=== PATIENT | male | born 1960 | race Hispanic/Latino ===

== ENCOUNTER 2017-12-25 09:43 | Outpatient (CLI) | payer OTHER ==
--- NOTE | 2017-12-25 11:26 | RAD ---
THREE VIEWS OF THE RIGHT SHOULDER: Date: 12-25-17 Comparison: None. History: Right shoulder pain and soreness, fall 6 weeks ago. FINDINGS: There is no widening of the acromioclavicular or coracoclavicular interspace. No displaced fracture o r evidence of dislocation seen. IMPRESSION: No acute osseous abnormality. POS: [facility]
== END 2017-12-25 09:44 | disposition home or self-care (01) ==
LOC: SCSRAD 09:43
PROVIDERS: ATTEND Family Medicine
DX: M25.511 Pain in right shoulder (principal)
CPT/HCPCS: 36415; 80053; 80061; 83036; 84439; 84443; 85025; 87521; G0103

== ENCOUNTER 2019-01-20 10:03 | Outpatient (CLI) | payer OTHER ==
--- NOTE | 2019-01-20 10:43 | RAD ---
Exam:Left shoulder 3 views HISTORY: Pain x many months. COMPARISON: None FINDINGS: Minimal sclerosis of the greater tuberosity. Correlate for rotator cuff tendinopathy. No fr acture or dislocation. IMPRESSION: Correlate for rotator cuff tendinopathy.
== END 2019-01-20 10:04 | disposition home or self-care (01) ==
LOC: SCSRAD 10:03
PROVIDERS: ATTEND Family Medicine
DX: M25.512 Pain in left shoulder (principal)

== ENCOUNTER 2019-02-14 15:14 | Outpatient (CLI) | payer OTHER ==
--- NOTE | 2019-02-14 16:11 | MRI ---
EXAM: MRI left shoulder PROVIDED CLINICAL HISTORY: Pain COMPARISON: None FINDINGS: There is a high-grade partial-thickness bursal surface tear involving essentially the entire width of the supraspinatus tendon at the footplate with about 1 cm of retraction. The components of the rotator cuff appear otherwise intact. The long head biceps tendon appears intact and normally located . The glenoid labrum and glenohumeral articular cartilage are suboptimally evaluated in the absence of joint distention but appear grossly normal. The amount of fluid within the glenohumeral joint is physiologic. There is conspicuous subacromial subdeltoid bursal fluid. There is acromioclavicular joint osteoarthr osis and lateral downsloping of the acromion a mildly thickened coracoacromial ligament. Rotator cuff muscular volume appears preserved. No focal concerning regional marrow or muscular signa l abnormality apparent. IMPRESSION: 1. High-grade partial-thickness bursal surface tear involving the supraspinatus tendon as described. 2. Acromioclavicular joint osteoarthrosis and lateral downsloping of the acromion associated with con spicuous subacromial subdeltoid bursitis.
== END 2019-02-14 15:15 | disposition home or self-care (01) ==
LOC: SCSMRI 15:14
PROVIDERS: ATTEND Orthopaedic Surgery
DX: M25.512 Pain in left shoulder (principal); M75.112 Incomplete rotator cuff tear or rupture of left shoulder, not specified as traumatic; M19.012 Primary osteoarthritis, left shoulder

== ENCOUNTER 2019-04-02 07:46 | Outpatient (CLI) | payer OTHER ==
[2019-04-02 11:34] LABS: #Basophils 0.1 thou/uL (0.0-0.2); #Eosinphils 0.1 thou/uL (0.0-0.7); #Lymphocytes 1.4 thou/uL (1.20-3.40); #Monocytes 0.5 thou/uL (0.11-0.59); #Neutrophils 3.6 thou/uL (1.40-6.50); %Eosinophils 2.1 % (0.0-10.0); %Lymphocytes 24.7 % (21.0-51.0); %Monocytes 8.3 % (0.0-10.0); %Neutrophils 63.9 % (42.0-75.0); Hemoglobin 19.8 g/dL (14.0-18.0); Mean Corpuscular HGB CONC 33.5 g/dL (32.0-36.0); Mean Corpuscular Hemoglobin 31.1 pg (27.0-31.0); Mean Platelet Volume 6.6 fL (7.4-10.4); Platelet Count 124 thou/uL (130-400); RBC Distribution Width 11.9 % (11.5-14.5); Red Blood Cell (RBC) Count 6.35 mill/uL (4.70-6.10); White Blood Cell (WBC) Count 5.7 thou/uL (4.8-10.8)
[2019-04-02 11:59] LABS: Anion Gap 13 mmol/L (10-20); BUN (Urea Nitrogen) 6 mg/dL (8.4-25.7); Calc. Creatinine Clearance 0 mL/min (70-130); Calcium 9.9 mg/dL (7.8-10.44); Carbon Dioxide 25 mmol/L (23-31); Chloride 102 mmol/L (98-107); Estimated GFR-MDRD Greater than 90; Glucose 97 mg/dL (80-115); Sodium 136 mmol/L (136-145)
--- NOTE | 2019-04-03 07:10 | EKG ---
Test Reason : Blood Pressure : / mmHG Vent. Rate : 072 BPM Atrial Rate : 072 BPM P-R Int : 176 ms QRS Dur : 088 ms QT Int : 386 ms P-R-T Axes : 056 037 038 degrees QTc Int : 422 ms Normal sinus rhythm Normal ECG No previous ECGs available Confirmed by DR. Pooja TRIPATHI ([id number]) on 04/03/2019 7:10:32 AM Referred By: IERO Confirmed By:DR. Pooja TRIPATHI
== END 2019-04-02 07:47 | disposition home or self-care (01) ==
LOC: LABBT 07:46
PROVIDERS: ATTEND Orthopaedic Surgery
DX: Z01.818 Encounter for other preprocedural examination (principal); M75.102 Unspecified rotator cuff tear or rupture of left shoulder, not specified as traumatic
CPT/HCPCS: 80048; 85025; 93005; 93010

== ENCOUNTER 2019-05-05 09:58 | Outpatient (CLI) | payer OTHER ==
[2019-05-05 11:12] LABS: #Eosinphils 0.1 thou/uL (0.0-0.7); #Lymphocytes 1.8 thou/uL (1.20-3.40); #Monocytes 0.5 thou/uL (0.11-0.59); %Basophils 0.1 % (0.0-1.0); %Eosinophils 1.7 % (0.0-10.0); %Lymphocytes 33.2 % (21.0-51.0); %Monocytes 8.9 % (0.0-10.0); %Neutrophils 56.1 % (42.0-75.0); Hemoglobin 19.1 g/dL (14.0-18.0); Mean Corpuscular HGB CONC 33.2 g/dL (32.0-36.0); Mean Corpuscular Hemoglobin 30.9 pg (27.0-31.0); Mean Platelet Volume 6.9 fL (7.4-10.4); Platelet Count 129 thou/uL (130-400); RBC Distribution Width 11.7 % (11.5-14.5); White Blood Cell (WBC) Count 5.4 thou/uL (4.8-10.8)
[2019-05-05 11:25] LABS: Anion Gap 13 mmol/L (10-20); BUN (Urea Nitrogen) 7 mg/dL (8.4-25.7); Calc. Creatinine Clearance 0 mL/min (70-130); Calcium 9.4 mg/dL (7.8-10.44); Carbon Dioxide 28 mmol/L (23-31); Chloride 104 mmol/L (98-107); Estimated GFR-MDRD Greater than 90; Glucose 99 mg/dL (80-115); Potassium 4.6 mmol/L (3.5-5.1); Sodium 140 mmol/L (136-145)
== END 2019-05-05 09:59 | disposition home or self-care (01) ==
LOC: LABBT 09:58
PROVIDERS: ATTEND Orthopaedic Surgery
DX: Z01.812 Encounter for preprocedural laboratory examination (principal); M75.102 Unspecified rotator cuff tear or rupture of left shoulder, not specified as traumatic
CPT/HCPCS: 80048; 85025

== ENCOUNTER 2019-05-07 05:44 | Day surgery (SDC) | payer OTHER ==
[2019-04-02 10:41] VITALS: BMI 25.8
[2019-05-07] MEDS ORDERED: Fentanyl 100 MCG/2 ML VIAL ONE ×2 (06:39→06:54)
[2019-05-07] MEDS ORDERED: Lidocaine 1% w/Epinephrine 1:100K 20 ML VIAL ONE (06:51)
[2019-05-07] MEDS ORDERED: Midazolam HCl 2 mg/2 ml Vial ONE (06:54)
[2019-05-07] MEDS ORDERED: Ketorolac Tromethamine 30 MG/ML VIAL IVP PRN (07:37)
[2019-05-07] MEDS ORDERED: Promethazine HCl 25 MG/ML VIAL IM PRN (07:37)
[2019-05-07] MEDS ORDERED: HYDROcodone/Acetaminophen 10/325 mg Tablet PO PRN ×2 (07:37)
[2019-05-07] MEDS ORDERED: Ropivacaine 0.2% 550 ML 550 ML NERVE BLCK SCH (07:37)
[2019-05-07] MEDS ORDERED: Ondansetron PF 4 MG/2 ML Vial IVP PRN (07:37)
[2019-05-07] MEDS ORDERED: Zolpidem Tartrate 5 MG TAB PO PRN (07:37)
[2019-05-07] MEDS ORDERED: traMADol HCl 50 MG TAB PO PRN ×2 (07:37)
[2019-05-07] MEDS ORDERED: Fentanyl 100 MCG/2 ML VIAL SLOW IVP PRN (07:38)
[2019-05-07] MEDS ORDERED: Acetaminophen 325 MG TAB PO PRN (07:39)
[2019-05-07] MEDS ORDERED: Ropivacaine 0.2% HCl/PF (40 MG/20 ML VIAL) ONE (10:22)
[2019-05-07] MEDS ORDERED: Ketorolac Tromethamine 30 MG/ML VIAL ONE (10:22)
[2019-05-07] MEDS ORDERED: PROPOFOL 200 MG/20 ML VIAL ONE (10:22)
[2019-05-07] MEDS ORDERED: Ropivacaine 0.5% HCl/PF (150 MG/30 ML VIAL) ONE (10:22)
[2019-05-07] MEDS ORDERED: Glycopyrrolate 0.2 MG/ML 5 ML SYRINGE ONE (10:22)
[2019-05-07] MEDS ORDERED: Rocuronium Bromide 10 MG/ML (10ML VIAL) ONE (10:22)
[2019-05-07] MEDS ORDERED: Lidocaine 1% PF 5 ML VIAL ONE (10:22)
[2019-05-07] MEDS ORDERED: PHENYLEPHRINE-NS 100 MCG/ML 10 ML SYRINGE ONE (10:22)
[2019-05-07] MEDS ORDERED: Ondansetron PF 4 MG/2 ML Vial ONE (10:22)
[2019-05-07] MEDS ORDERED: ePHEDrine/0.9% NaCl/PF SYRINGE 50 mg/10 ml ONE (10:22)
[2019-05-07] MEDS ORDERED: Promethazine 25 MG TAB ONE (11:41)
[2019-05-07] MEDS ORDERED: Promethazine HCl 25 MG/ML VIAL ONE (11:41)
--- NOTE | 2019-05-08 11:22 | OP ---
DATE OF PROCEDURE: 05/07/2019 PREOPERATIVE DIAGNOSES: Left shoulder impingement rotator cuff tear and degenerative superior labrum anterior and posterior tear. Left acromioclavicular joint arthritis. POSTOPERATIVE DIAGNOSES: Left shoulder impingement rotator cuff tear and degenerative superior labrum anterior and posterior tear. Left acromioclavicular joint arthritis. PROCEDURES PERFORMED: 1. Left shoulder arthroscopy, subacromial decompression. 2. Arthroscopic rotator cuff repair, left shoulder. 3. Left shoulder open biceps tenodesis. 4. Left open distal clavicle excision. MARGARINE CHURN OPERATOR: Stephan Issa PA-C IMPLANTS: One triple-loaded titanium rotator cuff anchor and one 4.75 BioComposite SwiveLock. We also used a 7 x 23 BioComposite Bio-Tenodesis screw. INDICATIONS: A 59-year-old active male, who comes in complaining of left shoulder pain and weakness. He was found on MRI scan to have a rotator cuff tear as well as a degenerative labral tear and at this point, opted for surgery. DESCRIPTION OF PROCEDURE: After all appropriate consent forms were explained and signed, he was taken back to operative room and at this time given a general anesthetic. Once the level of anesthesia was appropriate, he was rolled into the right lateral decubitus position with all bony prominences well padded. Axillary roll was placed underneath the right axilla. Beanbag was inflated to hold him in this position. The arm was taken through full range of motion. The arm was then suspended with 15 pounds in arthroscopic fashion. At this time, the left shoulder and upper extremity were then prepped and draped in standard surgical fashion. Bony anatomical landmarks were drawn out and the subacromial space was infiltrated with lidocaine with epinephrine. Posterior portal was established. Scope was placed into the shoulder joint. Anterior working portal was made using a needle localization technique. Diagnostic arthroscopy commenced. Articular surface of the humeral head and glenoid were in good condition. No loose bodies were noted in the axillary pouch. The subscapularis was intact. Biceps tendon was found to be in stable secondary to a degenerative flap tear. At this time, the 18-gauge needle was used to padgett the tendon and place a stitch. The tendon was removed off the superior labrum using the scissors. At this time, we then debrided the posterior superior and posterior labrum with a shaver. The undersurface of the rotator cuff at this juncture appeared to be intact. At this time, the scope was removed and replaced into the subacromial space. Lateral working portal was made. Bursa was removed from off the underlying cuff. The rotator cuff defect was noted in the supraspinatus area. The edges were removed and freshened up with a shaver. This was approximately 80% to 90% thickness bursal-sided tear. One triple-loaded titanium anchor was placed in a secondary stab incision and all sutures were pulled out anteriorly. The Scorpion device was then used to pass the 3 sets of sutures through the rotator cuff from front to back in mattress fashion. These were then tied and all 6 strands were taken down laterally and replaced through a 4.75 SwiveLock for our double row repair. Sutures were cut. This gave us a nice repair of our bursal-sided rotator cuff tear. Prior to proceeding with the rotator cuff repair, a small bony decompression was performed using the SERFAS energy as well as the shaver. At this time, the scope was removed from the shoulder. The shoulder was drained. At this time, the distal clavicle excision was performed. A 15 blade was used to incise down through skin. Bovie was used to coagulate any brisk venous bleeding. We then took full-thickness periosteal flaps anterior and posterior to expose the distal cm of the clavicle. A saw was used to remove the distal cm of the clavicle. A rasp was used to smooth off the edges of the bone and some bone wax was placed onto the bleeding cancellous bone. The wound was then thoroughly irrigated and dried. Deep Vicryl sutures were used to close our periosteal sleeve. 2-0 Vicryl and nylon was used to close the skin incision. A 15 blade was used to make an incision down through skin and Bovie was used to coagulate any brisk venous bleeding. New blade was used to sharply enter through the deltoid fascia and finger dissection was used to split the line of the deltoid fibers to get down to the underlying transverse humeral ligament and the biceps tendon. The transverse humeral ligament was opened up. Brisk venous bleeding was coagulated. Tendon was brought out and sutured. The intra-articular portion was removed. We then placed our pin into the groove, reamed with a 7-mm reamer to a depth of 25 mm and placed a 7 x 23 BioComposite Bio-Tenodesis screw in standard fashion. Sutures were tied over top, so the screw could not back out. We then thoroughly irrigated and dried this wound. Vicryl was then used to close the deltoid fascia in running fashion. A 2-0 Vicryl sutures were then used to close this incision as well as the portal sites. Bulky sterile dressing was applied. The patient was then awakened. He was taken to recovery room in stable condition. All counts were correct at the end of the case and he received preoperative IV antibiotics. Job ID: [id number]
== END 2019-05-07 13:27 | disposition home or self-care (01) ==
LOC: SDC 05:44
PROVIDERS: ATTEND Orthopaedic Surgery
PROC: 0RNK4ZZ Release Left Shoulder Joint, Percutaneous Endoscopic Approach (ICD-10-PCS; principal; 2019-05-07)
PROC: 0RHK44Z Insertion of Internal Fixation Device into Left Shoulder Joint, Percutaneous Endoscopic Approach (ICD-10-PCS; principal; 2019-05-07)
PROC: 0RHK04Z Insertion of Internal Fixation Device into Left Shoulder Joint, Open Approach (ICD-10-PCS; principal; 2019-05-07)
PROC: 0LQ24ZZ Repair Left Shoulder Tendon, Percutaneous Endoscopic Approach (ICD-10-PCS; principal; 2019-05-07)
PROC: 0LS20ZZ Reposition Left Shoulder Tendon, Open Approach (ICD-10-PCS; principal; 2019-05-07)
DX: M75.112 Incomplete rotator cuff tear or rupture of left shoulder, not specified as traumatic (principal); S43.432A Superior glenoid labrum lesion of left shoulder, initial encounter; M25.812 Other specified joint disorders, left shoulder; I10 Essential (primary) hypertension; E78.5 Hyperlipidemia, unspecified; F17.210 Nicotine dependence, cigarettes, uncomplicated; L71.9 Rosacea, unspecified; Z79.899 Other long term (current) drug therapy
CPT/HCPCS: A4306; C1713; J0690; J1885; J2001; J2250; J2405; J2550; J2704; J2795; J3010; Q0169

== ENCOUNTER 2020-04-15 12:48 | Outpatient (CLI) | payer BC ==
--- NOTE | 2020-04-15 15:15 | CT ---
CT OF THE THORAX WITHOUT IV CONTRAST UTILIZING LUNG CANCER SCREENING PROTOCOL: Date: 04/15/2020 INDICATION: History of current smoker with 1/2 pack per day for 44 years. COMPARISON: None. FINDINGS: There are areas of subsegmental volume loss involving the lower lingula, right middle lobe, and left lung base. No suspicious pulmonary nodule is identified. There are coronary artery thoracic aortic ca lcifications. No enlarged lymph nodes are grossly evident. Visualized upper abdomen reveals no defini te acute abnormality. No acute osseous abnormality is evident. There is scattered degenerative and os teoarthritic change. IMPRESSION: 1. Lung-RADS category 2: Benign. Recommend annual low dose lung cancer screening CT. 2. Category S: Coronary artery and thoracic aortic calcifications, subsegmental volume loss involvi ng the right middle lobe, lingula, and left lower lobe may be related to definite inspiration. POS: [facility]
== END 2020-04-15 12:49 | disposition home or self-care (01) ==
LOC: BICCT 12:48
PROVIDERS: ATTEND Internal Medicine Hematology & Oncology
DX: Z12.2 Encounter for screening for malignant neoplasm of respiratory organs (principal); I25.10 Atherosclerotic heart disease of native coronary artery without angina pectoris; I70.0 Atherosclerosis of aorta; Z87.891 Personal history of nicotine dependence
CPT/HCPCS: G0297

== ENCOUNTER 2021-04-26 13:47 | Outpatient (CLI) | payer BC | END 2021-04-26 13:48 | disposition home or self-care (01) | LOC: BICCT 13:47 | PROVIDERS: ATTEND Family Medicine | DX: Z12.2 Encounter for screening for malignant neoplasm of respiratory organs (principal); F17.210 Nicotine dependence, cigarettes, uncomplicated; I25.10 Atherosclerotic heart disease of native coronary artery without angina pectoris; I70.0 Atherosclerosis of aorta | CPT/HCPCS: 71271 ==